=== PATIENT | male | born 1970 | race Two or more races ===

== ENCOUNTER 2025-09-05 23:08 | Emergency (ER) | payer MEDICAID ==
[~2025-09-05] VITALS: Ht 175.3 cm; Wt 120.0 kg
[~2025-09-05 23:08] MED LIST: IBUP-1984 PO
[2025-09-06 01:04] VITALS: BP_DIAS 128; RESP 16; O2SAT 99
[2025-09-06 02:06] VITALS: BP_SYST 200; PULSE 88
--- NOTE | 2025-09-06 02:34 | Physician Documentation ---
History of Present Illness ~ Chief Complaint: Nose bleed Stated Complaint: NOSE BLEED Time Seen by MD: 01:03 Primary Medical Doctor: QUIRINO KIDD [facility] This is a 55-year-old gentleman with a prior history of epistaxis many years ago, presents for evaluation of nosebleed for the last 2 hours. Bleeding initially out of left Montesinos, now bleeding in the back of his throat. No palliating or aggravating factors. Did not attempt to treat it. Denies chest pain, difficulty breathing, nausea, vomiting, diarrhea, abdominal pain. Denies use of tobacco, drinks occasionally, does not do drugs. That is has been history of hypotension, random was stopped taking her lisinopril a month ago because he developed tremors. Medication Reconciliation Allergies: Coded Allergies: diphenhydramine HCl (Verified Allergy, Severe, 09/05/25) acetaminophen (Verified Allergy, Unknown, 09/05/25) diphenhydramine (Verified Allergy, Unknown, 09/05/25) Scheduled Ibuprofen* (Motrin*), 600 MG PO Q8H, (Reported) Past Medical History Past Medical History: No Pertinent History Past Surgical History: no surgical history Smoking Status: Never smoker Alcohol Use: Occasionally Drug Use: none Lives with: Family Lives In: Home Review of Systems ROS 10 point review of systems was performed and unless noted above in HPI is negative for acute process/complaint. Physical Exam Vital Signs: Heart Rate: 88, Respiratory Rate: 16, BP: 200/128, Pulse Oximetry: 99, Weight: 120.000 Physical Exam GENERAL: Awake, alert, oriented, GCS 15, no apparent distress, non-toxic ap pearing, answers questions, follows commands appropriately. Examined in bed 18, accompanied by HEENT: Atraumatic, normocephalic, pupils equal, extraocular muscles intact, sclerae anicteric, mucus membranes moist, oropharynx is clear, no stridor. NECK: supple, full active range of motion, trachea midline, no thyromegaly, no lymphadenopathy, no JVD. CARDIOVASCULAR: regular rate/rhythm, no murmurs/gallops/rubs, Pulses are 2+ in all extremities and symmetric. Capillary refill less than 2 seconds. PULMONARY: Nonlabored, good air movement ,no respiratory distress, speaking in full sentences, clear to auscultation bilaterally, no wheezing, no ronchi, no rales, no accessory muscle use. GASTROINTESTINAL: Soft, non-tender, non-distended, normal active bowel sounds, no organomegaly, no pulsatile masses, no CVA tenderness. NEUROLOGIC: Lucid with normal mental status. Normal facial symmetry. Moves all extremities symmetrically and with purpose. No truncal ataxia. Speech is fluid without evidence of dysarthria or aphasia, no focal deficits appreciated. MUSCULOSKELETAL: There is full range of motion of all extremities. There is no joint pain or joint swelling or joint erythema. There is no muscle pain or tenderness or swelling. EXTREMITIES: warm, well-perfused, no cyanosis, no clubbing, no edema, no acute deformities. Skin: warm, dry, no rashes or lesions, no jaundice, no petechiae orpurpura. No ecchymosis. PSYCHIATRIC: Normal affect, normal insight, normal concentration. Focused exam: [Scant amount of bleeding in the posterior oropharynx, dry blood in the left Montesinos] Progress Results/Orders Results/Orders Completed Orders - GLENN RUIZ DO Hydralazine Tablet (Apresoline Tablet) (09/06/25 02:00) Medications Received in ER Medications (Trade) Dose Ordered Sig/Magan Route PRN Reason Start Time Stop Time Status Last Admin Dose Admin (Apresoline tablet) 25 mg STAT ONCE PO 09/06/25 02:00 09/06/25 02:01 DC 09/06/25 02:06 25 MG Vital Signs 09/05/25 09/06/25 09/06/25 23:22 01:04 02:06 Pulse 95 88 88 Resp 15 16 B/P (MAP) 210/98 215/128 (157) Pulse Ox 94 99 Medical Decision Making Additional information obtaine: family Findings Facility Status: ED Holds, RME process The plan was discussed with the patient, who demonstrates clear understanding of the plan and is in agreement with the plan unless otherwise noted in the chart. All questions have been answered, all concerns were addressed unless otherwise documented. I was available throughout their ED stay for frequent reassessment and questions. Differential Diagnoses (considered and possible or likely): [Anterior epistaxis, posterior epistaxis, anemia blood loss, less likely hemorrhagic shock, no evidence of trauma, no evidence of foreign body] ??Differential Diagnoses (considered and unlikely, not requiring evaluation currently): [See above] MDM Data Please see HPI for the following: Independent Historians and external Records Review. Historian: [Patient] Independent Historians: ?[] Medication Management: [Reviewed medication list] Social History and determinants: [Reviewed] Please see the body of the note for the following: Any independent interpretations of ECG, imaging studies. All vitals signs/haemodynamics, ordered tests were independently reviewed and interpreted by myself. Nursing triage complaint and vitals reviewed, additional nursing notes were reviewed as available and I agree unless otherwise noted or documented in contradiction in the chart Vital Signs: Independently reviewed Labs: Independently interpreted Imaging: Independently interpreted Old Medical Records: Independently reviewed, see [facility] for relevant summary and information Pulse Oximetry: [98%] interpreted as [normal on room air] by me Additionally notably showing: [Hemodynamically stable. Hypertensive, received medicine for hypotension and it improved.] Tests considered but not ordered include: [Hematologic workup and imaging has been considered but does not appear to be necessary given clinical nature of diagnosis] Social Determinants of Health Impact: Patient was evaluated in [facility] [place] to healthcare due to below par ratio of patient to medical providers. [] Comorbid Conditions Impacting Present Evaluation and Care/Treatment: [History of epistaxis] Management Discussions with other Healthcare Providers: [None] Treatment and Disposition Medication Management (Given or considered): [Takes a has been considerably problem resolved spontaneously. He received hydralazine for hypotension]. See EMR for details Consideration for Hospitalization/Escalation/Deescalation of Care: Admission for observation has been considered, [however the patient is able to tolerate p.o., their symptoms are controlled, they are able to rely on oral medications, and their chief complaint/diagnosis can be managed on outpatient basis.] ?ED Course:?[Eventually the bleeding was controlled. He was observed.] ?Shared decision making:?[Patient is hemodynamically stable for discharge home with follow with their primary care provider. [ ] Specific and cautious return precautions provided and discussed with full understanding. Any incidental findings were also discussed and follow up recommendations given. [] All ques tions answered. Patient/family were able to verbalize back return precautions. Patient/family agree to plan. Copies of imaging and laboratory studies were provided.] Code status:?FULL Please see the full Electronic Medical Record for full details of nursing documentation, medications list, other records of complete past medical history and conditions, vital signs, laboratory studies, and any radiologic study interpretations by radiologists. Portions of this note were completed using Pull dictation software and as a result there may exist minor errors in spelling. I have reviewed elements of past family and social history and agree as included in note. Ear Diff. Dx: Considerations: Unlikely: Other Eye Diff. Dx: Considerations: Unlikely: Other Nose Diff. Dx: Considerations: Unlikely: Other Tooth Diff. Dx: Considerations: Unlikely: Other Throat Diff Dx: Considerations: Unlikely: Other Additional Comment See body of main note for differential diagnosis Departure Disposition: 01 HOME / SELF CARE / HOMELESS Impression: Primary Impression: Epistaxis Condition: Improved Discharge Instructions: Nosebleed, Adult Referrals: NO PRIMARY CARE PROVIDER (PCP) Education Educated: Patient Educated regarding: diagnosis, treatment, prognosis, need for follow up Signature Scribe Signature: No scribe Attestation: Date: Sep 06, 2025 Time: 02:34 This note accurately reflects clinical decisions, work performed by myself, DO JOSEPH Vizcarra NICHOLAS M DO Sep 06, 2025 02:34
== END 2025-09-06 03:12 | disposition home or self-care (01) ==
LOC: ER 23:08
DX: R04.0 Epistaxis (principal); I10 Essential (primary) hypertension; Z88.8 Allergy status to other drugs, medicaments and biological substances; Z79.899 Other long term (current) drug therapy; Z72.89 Other problems related to lifestyle
CPT/HCPCS: 99283